=== PATIENT | male | born 1955 | race American Indian/Alaskan Native ===

== ENCOUNTER 2016-10-20 04:47 | Emergency (ER) | payer BC ==
[2016-10-20] MEDS ORDERED: PEPCID IV ONE (09:08)
[2016-10-20] MEDS ORDERED: DECADRON IV ONE (09:08)
[2016-10-20] MEDS ORDERED: NACL 0.9% 1000 ML 1,000 ML IV ONE (09:08)
[2016-10-20] MEDS ORDERED: BENADRYL IV ONE (09:08)
--- NOTE | 2016-10-20 09:13 | Emergency Department Report ---
<SKYLARJUAN JONES M - Last Filed: 10/20/16 10:23> ED ENT HPI - General Chief complaint: Sore Throat Stated complaint: SORE THROAT Time Seen by Provider: 10/20/16 08:39 Source: patient Mode of arrival: Ambulatory Limitations: No Limitations - History of Present Illness Initial comments: PT c/o sore throat x 4 days. PT states he is having a difficult time swallowing. PT states he has not been around anyone sick. PT denies fevers. PT has a hx of htn and is currently being treated with lisinopril and verapamil. last lisinopril yesterday at 0900 complaint: sore throat, difficulty swallowing Onset/Timin -: Gradual Location: throat Severity scale (0 -10): 9 Quality: constant Consistency: constant Improves with: none Worsens with: swallowing, eating, other (talking ) Associated Symptoms: denies: fever - Related Data Previous Rx's Medication Instructions Recorded Last Taken Type Famotidine [Pepcid] 20 mg PO BID #8 tablet 10/20/16 Unknown Rx predniSONE [Deltasone] 20 mg PO BID #10 tablet 10/20/16 Unknown Rx Allergies Allergy/AdvReac Type Severity Reaction Status Date / Time No Known Allergies Allergy Verified 10/20/16 05:07 ED Dental HPI - General Chief complaint: Sore Throat Stated complaint: SORE THROAT Time Seen by Provider: 10/20/16 08:39 Source: patient Mode of arrival: Ambulatory Limitations: No Limitations - Related Data Previous Rx's Medication Instructions Recorded Last Taken Type Famotidine [Pepcid] 20 mg PO BID #8 tablet 10/20/16 Unknown Rx predniSONE [Deltasone] 20 mg PO BID #10 tablet 10/20/16 Unknown Rx Allergies Allergy/AdvReac Type Severity Reaction Status Date / Time No Known Allergies Allergy Verified 10/20/16 05:07 ED Review of Systems ROS: Stated complaint: SORE THROAT Other details as noted in HPI Comment: All other systems reviewed and negative Constitutional: denies: chills, fever, malaise ENT: throat pain. denies: congestion Respiratory: denies: cough, shortness of breath, SOB with exertion, SOB at rest Cardiovascular: other (pt states his blood pressure is usually well controlled ) . denies: chest pain Musculoskeletal: denies: myalgia ED Past Medical Hx - Past Medical History Previous Medical History?: Yes Hx Hypertension: Yes - Surgical History Past Surgical History?: No - Social History Smoking Status: Current Every Day Smoker Substance Use Type: Alcohol - Medications Home Medications: Home Medications Medication Instructions Recorded Confirmed Last Taken Type Famotidine [Pepcid] 20 mg PO BID #8 tablet 10/20/16 Unknown Rx predniSONE [Deltasone] 20 mg PO BID #10 tablet 10/20/16 Unknown Rx ED Physical Exam - General Limitations: No Limitations General appearance: alert, in no apparent distress - Head Head exam: Present: atraumatic, normocephalic, normal inspection - Eye Eye exam: Present: normal appearance, PERRL, EOMI. Absent: conjunctival injection - ENT ENT exam: Present: mucous membranes moist, TM's normal bilaterally, normal external ear exam - Expanded ENT Exam Expanded Mouth exam: Present: muffled voice. Absent: drooling, trismus Throat exam: Positive: tonsillomegaly, other (uvular edema- no airway obstruction noted ). Negative: tonsillar exudate, R peritonsillar mass, L peritonsillar mass - Neck Neck exam: Present: normal inspection, full ROM. Absent: tenderness, lymphadenopathy - Respiratory Respiratory exam: Present: normal lung sounds bilaterally. Absent: respiratory distress, chest wall tenderness - Cardiovascular Cardiovascular Exam: Present: regular rate, normal rhythm, normal heart sounds - GI/Abdominal GI/Abdominal exam: Present: soft. Absent: tenderness - Extremities Exam Extremities exam: Present: normal inspection, full ROM - Back Exam Back exam: Present: normal inspection, full ROM. Absent: tenderness - Neurological Exam Neurological exam: Present: alert, oriented X3 - Psychiatric Psychiatric exam: Present: normal affect, normal mood - Skin Skin exam: Present: warm, dry, intact, normal color. Absent: rash ED Course Vital Signs 10/20/16 10/20/16 05:07 11:49 Temperature 98.6 F Pulse Rate 93 H 74 Respiratory 18 20 Rate Blood Pressure 150/107 Blood Pressure 152/72 [Right] O2 Sat by Pulse 97 99 Oximetry - Reevaluation(s) Reevaluation #1: 10/20/16 09:07 PT also seen by Dr Brown. Reevaluation #2: 10/20/16 10:23 pt laying on stretcher, appears to be sleeping, no acute resp distress noted. will continue to monitor. - Pulse Oximetry Interpretation Digit-Finger Initial Pulse Oximetry Readin Actions Taken: none ED Medical Decision Making - Differential Diagnosis strep throat, viral pharyngitis, angioedema Critical care attestation.: If time is entered above; I have spent that time in minutes in the direct care of this critically ill patient, excluding procedure time. ED Disposition Clinical Impression: Angioedema Disposition: DC-01 TO HOME OR SELFCARE Condition: Stable Instructions: Angioedema (ED) Additional Instructions: Please stop your lisinopril. Follow-up with your primary care doctor to switch her blood pressure medication. Prescriptions: Famotidine [Pepcid] 20 mg PO BID #8 tablet predniSONE [Deltasone] 20 mg PO BID #10 tablet Referrals: PRIMARY CARE, [Primary Care Provider] - 3-5 Days <CHRISTINA BROWN - Last Filed: 10/20/16 12:41> ED Medical Decision Making - Medical Decision Making I have seen and examined this patient myself. I agree with the PA or TRAIN DISPATCHER plan as discussed. Patient is a 61-year-old on lisinopril here with increasing throat pain and difficult swallowing. He has no angioedema of the lips however his uvula is swollen. He is no reason for infection rapid strep is negative I suspect this is likely due to lisinopril. Plan to treat as angioedema we'll observe for several hours and if no progression discharge home. Epi Brown ED Disposition Is pt being admited?: No
[2016-10-20 11:50] VITALS: BP 152/72
== END 2016-10-20 12:49 | disposition home or self-care (01) ==
LOC: ED 04:47
DX: T78.3XXA Angioneurotic edema, initial encounter (principal); F17.200 Nicotine dependence, unspecified, uncomplicated; Y92.9 Unspecified place or not applicable
CPT/HCPCS: 87116; 87430; 96361; 96374; 96375; 99282; J1100; J1200; J7030